=== PATIENT | female | born 1950 | race Caucasian/White ===

== ENCOUNTER → 2016-05-26 | Outpatient (CLI) | payer OTHER ==
[~2016-05-26] MED LIST: AMBIEN PO; AMBIEN10 MG PO; ASPIRIN81 M2 PO; CALTRATE 600+D; CIPRO PO; NO MEDICATIONS; SIMVASTATIN20 MG PO; SYNTHROID0.05 MG PO; TRAMADOL HCL50 M1 PO
--- NOTE | ~2016-05-26 | CT113 ---
[facility] A Service of [facility] RADIOLOGY TEXT RESULTS PATIENT: MARCI HUERTA LOCATION: [facility] : 54 UNIT #: [id number] AGE: [address]: Silvestre Franklin MD SEX: F ORDER DR: [id number] [place] [id number] MR#: [id number] Acc #: [id number] NAME: MARCI HUERTA : 1950 SEX: F STUDY DATE/TIME: 05/26/2016 13:40 UNIT: [facility] ROOM: STUDY DESCRIPTION: CT Sinuses Wo Contrast Attending Physician: Silvestre Franklin III, M.D. Referring Physician: Silvestre Franklin III, M.D. Ordering Physician: Silvestre Franklin III, M.D. Primary Care Physician: Virgilio Wild M.D. MEDICAL IMAGING REPORT This report is preliminary unless electronic signature is present. EXAM Sinus CT HISTORY Chronic sinusitis with symptoms over the past 4 weeks. Pain and pressure chronically since December 2015. TECHNIQUE Thin section imaging was obtained through the sinuses and evaluated at bone window with multiplanar reformats. This CT exam was performed with one or more of the following radiation dose reduction techniques: automatic exposure control, adjustment of mA and/or kV according to patient size, and iterative reconstruction. FINDINGS The sinuses are clear. The ostiomeatal complex is open on both sides. No air fluid levels are seen and no destructive bone lesions are noted. The septum deviates mildly to the right. IMPRESSION Mild septal deviation to the right. Otherwise negative. Dictated by... Rudy Camarillo M.D. THIS IS AN ELECTRONICALLY VERIFIED REPORT Rudy Camarillo M.D. at 05/26/2016 4:06 PM RLF/patricio [facility] A Service [facility] RADIOLOGY TEXT RESULTS PATIENT: MARCI HUERTA LOCATION: [facility] : 54 UNIT #: [id number] AGE: [address]: Silvestre Frankiln MD SEX: F ORDER DR: TD: 05/26/2016 15:41 JOB #: [id number] MEDICAL IMAGING REPORT Page 1 of 1
== END | disposition home or self-care (01) ==
LOC: SCT 13:20
DX: J32.9 Chronic sinusitis, unspecified (principal); J34.2 Deviated nasal septum
CPT/HCPCS: 70486